=== PATIENT | female | born 1965 | race Caucasian/White ===

== ENCOUNTER 2016-08-26 14:48 | Observation (INO) | payer BC ==
[2016-08-26] MEDS ORDERED: Pneumococcal Polyvalent-23 Vaccine 0.5 ML SDV IM ONE (15:27)
[2016-08-26] MEDS ORDERED: Calcium Carbonate 500 MG Tab.Chew PO PRN (15:47)
[2016-08-26] MEDS ORDERED: 50% Dextrose in Water 50 ML Syringe IVPUSH PRN (15:48)
[2016-08-26] MEDS ORDERED: Polyethylene Glycol/Electrolytes 4,000 ML Bottle PO ONE ×2 (15:50→18:02)
[2016-08-26] MEDS ORDERED: Ondansetron 4 MG/2 ML SDV IVPUSH PRN (15:53)
--- NOTE | 2016-08-26 17:05 | PCM.CONSN ---
[id number] of HTN, DM and Fe deficiency anemia, presents after evaluation by her PCP, Dr Kwong. She has had PUD/gastritis in the past; the complaint after direct admission is dizziness. Denies LOC, has had jaw discomfort recently with exertion. ECG changes document nonspecific T wave abnormalities. The patient denies a change in BM, stool color or frequency. There has been no nausea or vomiting. A EGD as well as colonoscopy have been planned for 08/27/16, the patient is agreeable. In the meantime, 2 units of PRBCs will be transfused. Lasix will be given, as a scheduled dose after the first unit. Functional Status: Reports: tolerating diet, ambulating, urinating - Review of Systems General: Reports: Weakness Pulmonary: Reports: shortness of breath Cardiovascular: Reports: Other (jaw pain) Gastrointestinal: Reports: Abdominal pain (epigastric). Denies: No symptoms Genitourinary: Reports: no symptoms Musculoskeletal: Reports: no symptoms Skin: Reports: no symptoms Neurological: Reports: No Symptoms Psychiatric: Reports: no symptoms - Patient Data Vitals - most recent: Last Vital Signs Temp 36.6 C 08/26/16 15:18 Pulse 97 08/26/16 15:18 Resp 18 08/26/16 15:18 BP 129/80 08/26/16 15:18 Pulse Ox 96 08/26/16 15:18 Weight - most recent: 105.596 kg Med Orders - Current: Current Medications Calcium Carbonate/Glycine (Tums) 500 mg PO BEDTIME PRN PRN Reason: Heartburn Dextrose/Water (Dextrose 50% In Water) 50 ml IVPUSH ASDIRECTED PRN PRN Reason: Hypoglycemia Furosemide (Lasix) 20 mg IVPUSH DAILY [facility] Hydrochlorothiazide (Hydrochlorothiazide) 12.5 mg PO DAILY [facility] Insulin Aspart (Novolog) 0 unit SUBCUT QIDACANDBED [facility] PRN Reason: Protocol Losartan Potassium (Cozaar) 100 mg PO DAILY [facility] Metoprolol Tartrate (Lopressor) 25 mg PO BID [facility] Ondansetron HCl (Zofran) 4 mg IVPUSH Q8H PRN PRN Reason: Nausea/Vomiting Pantoprazole Sodium (Protonix Iv) 40 mg IVPUSH Q12H [facility] Polyethylene Glycol/Electrolytes (Golytely) 1,400 ml PO ONETIME ONE Stop: 08/27/16 04:01 Simvastatin (Zocor) 20 mg PO BEDTIME [facility] Temazepam (Restoril) 15 mg PO BEDTIME PRN PRN Reason: Insomnia Discontinued Medications Pneumococcal Polyvalent Vaccine (Pneumovax 23) 0.5 ml IM .ONCE ONE Stop: 08/26/16 15:28 Polyethylene Glycol/Electrolytes (Golytely) 2,600 ml PO ONETIME ONE Stop: 08/26/16 15:51 - Exam Quality Assessment: DVT prophylaxis General: alert, oriented, cooperative, no acute distress HEENT: Pupils equal, Pupils reactive, EOMI Neck: supple, trachea midline, no JVD Lungs: Clear to auscultation Cardiovascular: Regular Rate, Regular Rhythm Abdomen: bowel sounds present, soft, no tenderness, no distension (Female) Exam: Deferred Back Exam: normal inspection Extremities: normal pulses Skin: warm Neurological: no new focal deficit Psy/Mental Status: alert, normal affect, normal mood Consult PN Assessment/Plan POD#: 0 Procedures: Procedures AUTOMATED RETICULOCYTE COUNT (11/11/14) COMP SCREEN MAMMOGRAM ADD-ON (12/23/15) LACTATE (LD) (LDH) ENZYME (11/11/14) (1) Iron (Fe) deficiency anemia SNOMED Code(s): 93695652 Code(s): D50.9 - IRON DEFICIENCY ANEMIA, UNSPECIFIED Current Visit: Yes (2) Epigastric abdominal pain SNOMED Code(s): 31651623 Code(s): R10.13 - EPIGASTRIC PAIN Current Visit: Yes (3) Hypertension SNOMED Code(s): 76215945 Code(s): I10 - ESSENTIAL (PRIMARY) HYPERTENSION Current Visit: Yes (4) Diabetes SNOMED Code(s): 73776526 Code(s): E11.9 - TYPE 2 DIABETES MELLITUS WITHOUT COMPLICATIONS Current Visit: Yes (5) Hyperlipidemia LDL goal <130 SNOMED Code(s): 99559180 Code(s): E78.5 - HYPERLIPIDEMIA, UNSPECIFIED Current Visit: Yes (6) Anginal equivalent SNOMED Code(s): 254463815 Code(s): I20.8 - OTHER FORMS OF ANGINA PECTORIS Current Visit: Yes Problem List Initiated/Reviewed/Updated: Yes My Orders last 24 hours: My Active Orders 08/26/16 15:47 Calcium Carbonate [Tums] 500 mg PO BEDTIME PRN 08/26/16 15:48 Blood Glucose Check, Bedside [RC] QIDACANDBED Dextrose 50% in Water 50 ml IVPUSH ASDIRECTED PRN 08/26/16 15:53 Ondansetron [Zofran] 4 mg IVPUSH Q8H PRN 08/26/16 15:54 Notify Provider [RC] ASDIRECTED Transfuse PRBC [Transfuse Red Blood Cells] [COMM] Routine 08/26/16 16:28 RED BLOOD CELLS LP [BBK] Routine TYPE AND SCREEN [BBK] Routine TYPE AND SCREEN [BBK] Routine 08/26/16 17:00 Insulin Aspart [NovoLOG] See Protocol SUBCUT QIDACANDBED Pantoprazole [Protonix IV] 40 mg IVPUSH Q12H 08/26/16 19:00 Furosemide [Lasix] 20 mg IVPUSH DAILY 08/26/16 21:00 Metoprolol Tartrate [Lopressor] 25 mg PO BID Simvastatin [Zocor] 20 mg PO BEDTIME Temazepam [Restoril] 15 mg PO BEDTIME PRN 08/26/16 Dinner Clear Liquid Diet [DIET] 08/27/16 04:00 KCl/Na Sulf,Bicarb,Cl/PEG 3351 [GoLytely] 1,400 ml PO ONETIME ONE 08/27/16 09:00 Hydrochlorothiazide 12.5 mg PO DAILY Losartan [Cozaar] 100 mg PO DAILY Plan: Impression: Fe anemia History of PUD Anginal equivalent Chronic HTN DM Hyperlipidemia Plan: EGD/Colonsocopy per gen surg Golytely as directed, npo after 0600; clear liquids diet IVF PRBCs Stress test as an OP arranged by PCP, TBD DVT/GI prophylaxis
[2016-08-26] MEDS: Pantoprazole 40 MG Vial IVPUSH SCH (18:01)
[2016-08-26] MEDS: Insulin Aspart 100 Units/ML 3 ML Pen SUBCUT SCH ×2 (18:04→21:57)
--- NOTE | 2016-08-26 18:05 | PCM.PN ---
- General Info Date of Service: 08/26/16 - Patient Data Vitals - most recent: Last Vital Signs Temp 97.9 F 08/26/16 15:18 Pulse 97 08/26/16 15:18 Resp 18 08/26/16 15:18 BP 129/80 08/26/16 15:18 Pulse Ox 96 08/26/16 15:18 Weight - most recent: 105.596 kg Med Orders - Current: Current Medications Calcium Carbonate/Glycine (Tums) 500 mg PO BEDTIME PRN PRN Reason: Heartburn Dextrose/Water (Dextrose 50% In Water) 50 ml IVPUSH ASDIRECTED PRN PRN Reason: Hypoglycemia Furosemide (Lasix) 20 mg IVPUSH DAILY [facility] Hydrochlorothiazide (Hydrochlorothiazide) 12.5 mg PO DAILY [facility] Insulin Aspart (Novolog) 0 unit SUBCUT QIDACANDBED [facility] PRN Reason: Protocol Losartan Potassium (Cozaar) 100 mg PO DAILY [facility] Metoprolol Tartrate (Lopressor) 25 mg PO BID [facility] Ondansetron HCl (Zofran) 4 mg IVPUSH Q8H PRN PRN Reason: Nausea/Vomiting Pantoprazole Sodium (Protonix Iv) 40 mg IVPUSH Q12H [facility] Polyethylene Glycol/Electrolytes (Golytely) 1,400 ml PO ONETIME ONE Stop: 08/27/16 04:01 Simvastatin (Zocor) 20 mg PO BEDTIME [facility] Temazepam (Restoril) 15 mg PO BEDTIME PRN PRN Reason: Insomnia Discontinued Medications Pneumococcal Polyvalent Vaccine (Pneumovax 23) 0.5 ml IM .ONCE ONE Stop: 08/26/16 15:28 Polyethylene Glycol/Electrolytes (Golytely) 2,600 ml PO ONETIME ONE Stop: 08/26/16 15:51 Polyethylene Glycol/Electrolytes (Golytely) 4,000 ml PO ONETIME ONE Stop: 08/26/16 18:03 - Problem List Review Problem List Initiated/Reviewed/Updated: Yes - My Orders Last 24 Hours: My Active Orders 08/26/16 17:54 Resuscitation Status Routine 08/26/16 18:00 Verify Patient Consent Obtain [RC] ASDIRECTED 08/26/16 Breakfast Nothing per Oral After Midnight Diet [DIET] 08/27/16 01:00 Schedule Procedure [COMM] Routine - Assessment Assessment:: H&P dictated AAKASH
[2016-08-26] MEDS: Furosemide 20 MG/2 ML VIAL IVPUSH SCH (19:29)
[2016-08-26] MEDS ORDERED: Sodium Chloride 0.9% 250 ML ONE ×2 (20:36→23:03)
[2016-08-26] MEDS ORDERED: Simvastatin 20 MG Tab PO SCH (21:00)
[2016-08-26] MEDS ORDERED: Temazepam 15 MG Cap PO PRN (21:00)
[2016-08-26] MEDS: Metoprolol Tartrate 25 MG Tab PO SCH (21:57)
[2016-08-27] MEDS ORDERED: Polyethylene Glycol/Electrolytes 4,000 ML Bottle PO ONE (04:00)
[2016-08-27] MEDS: Pantoprazole 40 MG Vial IVPUSH SCH (05:19)
--- NOTE | 2016-08-27 07:00 | HP ---
DATE OF ADMISSION: 08/26/2016 HISTORY OF PRESENT ILLNESS: This is a 51-year-old female, who comes in with anemia of 7. The patient has had a history of GI bleed in the past and last year underwent upper GI endoscopy and colonoscopy and found to have peptic ulcer disease. She is placed on at that time Prilosec and her nonsteroidal was withdrawn which she was taking for back pain. The patient was placed on iron, improved, and in February had stopped her iron and inadvertently her Prilosec. In April, she began to have difficulties with shortness of breath and decreased exercise tolerance. She was seen by Dr. Varghese meehan who noted difficulties with her anemia. The patient was admitted to the hospital because of her symptoms for blood transfusions and later study with colonoscopy and upper GI endoscopy. PAST MEDICAL HISTORY: Diabetes, hypertension, hyperlipidemia. CURRENT MEDICATIONS: Per medication reconciliation form which has been reviewed. REVIEW OF SYSTEMS: Does have some chest pain. No cough, hoarseness, fainting, or weakness. Does have some weakness and does have some dizziness. No convulsions. Does have decreased exercise tolerance. No rectal bleeding or vomiting blood. No abdominal pain and no heavy use of nonsteroidals except every now and then she states she takes Anacin or Excedrin for her back. SOCIAL HISTORY: The patient has no smoking. ALLERGIES: No known allergies except for iodine and shellfish. HABITS: No drug use. FAMILY HISTORY: Noncontributory. PHYSICAL EXAMINATION: GENERAL: Reveals an alert, cooperative female. HEENT: Eyes; sclerae white, extraocular muscle motion normal. Oral cavity, healthy mucous membrane with mouth and tongue. NECK: Supple. No nodes. No thyromegaly. Trachea midline. LUNGS: Clear. No rales, rhonchi, fremitus, or dullness. HEART: Heart tones looks elevated heart rate of 97 to 100. No murmurs, S3, S4. ABDOMEN: Soft. No tenderness, guarding, or rebound. PSYCHIATRIC: Mental status is normal. SKIN: Warm. MUSCULOSKELETAL: Moves all 4 extremities. No angulation deformities. NEUROLOGIC: 3 through 12 cranial nerves intact. No sensorineural deficit. VITAL SIGNS: Show a blood pressure 129/80, pulse 97, respirations 18. ASSESSMENT: Anemia from blood loss, diabetes, hypertension, hyperlipidemia. PLAN: To proceed with colonoscopy and upper GI endoscopy. Discussed this with the patient risks, complications. She understands and consents. ELVIA /[id number]
[2016-08-27] MEDS: Insulin Aspart 100 Units/ML 3 ML Pen SUBCUT SCH ×2 (07:38→10:44)
[2016-08-27] MEDS: Metoprolol Tartrate 25 MG Tab PO SCH (08:18)
[2016-08-27] MEDS: Furosemide 20 MG/2 ML VIAL IVPUSH SCH (08:19)
[2016-08-27] MEDS ORDERED: Hydrochlorothiazide 12.5 MG Cap PO SCH (09:00)
[2016-08-27] MEDS ORDERED: Losartan 100 MG Tab PO SCH (09:00)
--- NOTE | 2016-08-27 10:43 | PCM.PREANE ---
Preanesthetic Assessment - Anesthesia/Transfusion/Family Hx Anesthesia History: Prior Anesthesia Without Reaction Family History of Anesthesia Reaction: No Transfusion History: No Prior Transfusion(s) - Review of Systems General: Fatigue Pulmonary: No Symptoms Cardiovascular: No Symptoms Gastrointestinal: No symptoms Neurological: No Symptoms Other: Reports: Easy Bruising, Diabetes (blood suger this am 130) - Physical Assessment NPO Status Date: 08/27/16 NPO Status Time: 06:00 Pulse: 68 O2 Sat by Pulse Oximetry: 97 Respiratory Rate: 16 Blood Pressure: 127/85 Temperature: 36.4 C Vital Signs: Last Vital Signs Temp 36.4 C 08/27/16 08:03 Pulse 68 08/27/16 08:18 Resp 16 08/27/16 08:03 BP 127/85 08/27/16 08:18 Pulse Ox 97 08/27/16 08:03 Height: 1.7 m Weight: 104.871 kg ASA Class: 2 Mental Status: Alert & Oriented x3 Dentition: Reports: Normal Dentition, Caries Thyro-Mental Finger Breadths: 3 Mouth Opening Finger Breadths: 3 ROM/Head Extension: Full Lungs: Clear to auscultation, Normal respiratory effort Cardiovascular: Regular Rate, Regular Rhythm - Lab Values: Laboratory Last Values WBC 5.47 K/mm3 (3.98-10.04) 08/27/16 05:22 RBC 4.75 M/mm3 (3.98-5.22) 08/27/16 05:22 Hgb 8.5 gm/L (11.2-15.7) L 08/27/16 05:22 Hct 28.8 % (34.1-44.9) L 08/27/16 05:22 MCV 60.6 fl (79.4-94.8) L 08/27/16 05:22 MCH 17.9 pg (25.6-32.2) L 08/27/16 05:22 MCHC 29.5 g/dl (32.2-35.5) L 08/27/16 05:22 RDW Std Deviation 56.0 fL (36.4-46.3) H 08/27/16 05:22 Plt Count 300 K/mm3 (182-369) 08/27/16 05:22 MPV 10.2 fl (9.4-12.3) 03/24/17 05:22 POC Glucose 130 mg/dL (70-105) H 08/27/16 06:53 Blood Type A POSITIVE 08/26/16 16:28 Gel Antibody Screen Negative 08/26/16 16:28 Crossmatch See Detail 08/26/16 16:28 - Allergies Allergies/Adverse Reactions: Allergies Allergy/AdvReac Type Severity Reaction Status Date / Time iodine Allergy Airway Verified 08/26/16 15:24 Tightness shellfish derived Allergy Airway Verified 08/26/16 15:24 Tightness - Blood Blood Available: Yes Product(s) Available: PRBC - Anesthesia Plan Pre-Op Medication Ordered: Beta Mireille Beta Mireille: Metoprolol Med Last Dose Date: 08/27/16 Med Last Dose Time: 08:00 - Acknowledgements Anesthesia Type Planned: MAC Pt an Appropriate Candidate for the Planned Anesthesia: Yes Alternatives and Risks of Anesthesia Discussed w Pt/Guardian: Yes Pt/Guardian Understands and Agrees with Anesthesia Plan: Yes PreAnesthesia Questionnaire HEENT History: Reports: Allergic rhinitis Cardiovascular History: Reports: Hypertension Musculoskeletal History: Reports: Back pain, chronic Endocrine/Metabolic History: Reports: Diabetes, type II - Infectious Disease History Infectious Disease History: Reports: Chicken pox - Past Surgical History HEENT Surgical History: Reports: Tonsillectomy, Other (see below) Other HEENT Surgeries/Procedures: jaw surgery Cardiovascular Surgical History: Reports: None Endocrine Surgical History: Reports: None Musculoskeletal Surgical History: Reports: None - SUBSTANCE USE Smoking Status *Q: Never Smoker Tobacco Use Within Last Twelve Months: No Second Hand Smoke Exposure: No Days Per Week of Alcohol Use: 0 Number of Drinks Per Day: 0 Total Drinks Per Week: 0 Recreational Drug Use History: No - HOME MEDS Home Medications: Home Meds Aspirin/Acetaminophen/Caffeine [Headache Relief Tablet] 2 tab PO Q4H PRN [History] Calcium Carbonate [Tums] 3 tab PO BEDTIME PRN 08/26/16 [History] Chlorpheniramine Maleate 4 mg PO Q2H PRN 08/26/16 [History] Metoprolol Tartrate 25 mg PO BID 08/26/16 [History] Olmesartan/Hydrochlorothiazide [Benicar HCT 40-12.5 MG] 1 tab PO DAILY 08/26/16 [History] Simvastatin [Zocor] 20 mg PO BEDTIME 08/26/16 [History] metFORMIN HCl [Metformin HCl] 500 mg PO BID 08/26/16 [History] - CURRENT (IN HOUSE) MEDS Current Meds: Current Medications Calcium Carbonate/Glycine (Tums) 500 mg PO BEDTIME PRN PRN Reason: Heartburn Dextrose/Water (Dextrose 50% In Water) 50 ml IVPUSH ASDIRECTED PRN PRN Reason: Hypoglycemia Furosemide (Lasix) 20 mg IVPUSH DAILY [facility] Last Admin: 08/27/16 08:19 Dose: Not Given Hydrochlorothiazide (Hydrochlorothiazide) 12.5 mg PO DAILY [facility] Last Admin: 08/27/16 08:18 Dose: Not Given Insulin Aspart (Novolog) 0 unit SUBCUT QIDACANDBED [facility] PRN Reason: Protocol Last Admin: 08/27/16 07:38 Dose: Not Given Losartan Potassium (Cozaar) 100 mg PO DAILY [facility] Last Admin: 08/27/16 08:18 Dose: Not Given Metoprolol Tartrate (Lopressor) 25 mg PO BID [facility] Last Admin: 08/27/16 08:18 Dose: 25 mg Ondansetron HCl (Zofran) 4 mg IVPUSH Q8H PRN PRN Reason: Nausea/Vomiting Pantoprazole Sodium (Protonix Iv) 40 mg IVPUSH Q12H [facility] Last Admin: 08/27/16 05:19 Dose: 40 mg Simvastatin (Zocor) 20 mg PO BEDTIME [facility] Last Admin: 08/26/16 21:57 Dose: 20 mg Temazepam (Restoril) 15 mg PO BEDTIME PRN PRN Reason: Insomnia Discontinued Medications Sodium Chloride (Normal Saline) Confirm Administered Dose 250 mls @ as directed .ROUTE .STK-MED ONE Stop: 08/26/16 20:37 Last Admin: 08/26/16 21:59 Dose: 100 ml Sodium Chloride (Normal Saline) Confirm Administered Dose 250 mls @ as directed .ROUTE .STK-MED ONE Stop: 08/26/16 23:04 Last Admin: 08/26/16 23:53 Dose: 150 ml Pneumococcal Polyvalent Vaccine (Pneumovax 23) 0.5 ml IM .ONCE ONE Stop: 08/26/16 15:28 Polyethylene Glycol/Electrolytes (Golytely) 2,600 ml PO ONETIME ONE Stop: 08/26/16 15:51 Last Admin: 08/26/16 18:01 Dose: 2,600 ml Polyethylene Glycol/Electrolytes (Golytely) 1,400 ml PO ONETIME ONE Stop: 08/27/16 04:01 Last Admin: 08/27/16 05:19 Dose: 1,400 ml Polyethylene Glycol/Electrolytes (Golytely) 4,000 ml PO ONETIME ONE Stop: 08/26/16 18:03 Last Admin: 08/26/16 18:58 Dose: Not Given Preanesthetic Assessment - PHYSICAL ASSESSMENT HR: 68 O2 Sat by Pulse Oximetry: 97 RR: 16 BP: 127/85 Temp: 36.4 C Vital Signs: Last Vital Signs Temp 36.4 C 08/27/16 08:03 Pulse 68 08/27/16 08:18 Resp 16 08/27/16 08:03 BP 127/85 08/27/16 08:18 Pulse Ox 97 08/27/16 08:03 Height: 1.7 m Weight: 104.871 kg - LAB Values: Laboratory Last Values WBC 5.47 K/mm3 (3.98-10.04) 08/27/16 05:22 RBC 4.75 M/mm3 (3.98-5.22) 08/27/16 05:22 Hgb 8.5 gm/L (11.2-15.7) L 08/27/16 05:22 Hct 28.8 % (34.1-44.9) L 08/27/16 05:22 MCV 60.6 fl (79.4-94.8) L 08/27/16 05:22 MCH 17.9 pg (25.6-32.2) L 08/27/16 05:22 MCHC 29.5 g/dl (32.2-35.5) L 08/27/16 05:22 RDW Std Deviation 56.0 fL (36.4-46.3) H 08/27/16 05:22 Plt Count 300 K/mm3 (182-369) 08/27/16 05:22 MPV 10.2 fl (9.4-12.3) 08/27/16 05:22 POC Glucose 130 mg/dL (70-105) H 08/27/16 06:53 Blood Type A POSITIVE 08/26/16 16:28 Gel Antibody Screen Negative 08/26/16 16:28 Crossmatch See Detail 08/26/16 16:28 - ALLERGIES Allergies/Adverse Reactions: Allergies Allergy/AdvReac Type Severity Reaction Status Date / Time iodine Allergy Airway Verified 08/26/16 15:24 Tightness shellfish derived Allergy Airway Verified 08/26/16 15:24 Tightness
[2016-08-27] MEDS ORDERED: Propofol 200 MG/20 ML SDV ONE ×4 (12:57→13:22)
[2016-08-27] MEDS ORDERED: Midazolam 1 MG/ML 2 ML SDV ONE (12:57)
[2016-08-27] MEDS ORDERED: Lidocaine 1% 4 ML ONE (13:01)
[2016-08-27] MEDS ORDERED: fentaNYL 100 MCG/2 ML SDV ONE (13:20)
--- NOTE | 2016-08-27 13:34 | PCM.OPNOTE ---
- General Post-Op/Procedure Note Date of Surgery/Procedure: 08/27/16 Operative Procedure(s): egd with bx/colonoscopy Pre Op Diagnosis: anemia due to GI bleed Post-Op Diagnosis: Same Anesthesia Technique: MAC Primary Surgeon: Jose Alfredo Pearce EBL in mLs: 0 Complications: None Condition: Good Free Text/Narrative:: Intake & Output 08/26/16 08/27/16 08/27/16 23:59 07:59 15:59 Intake Total 544 2127 Output Total 200 Balance 544 1923
--- NOTE | 2016-08-27 13:37 | PCM.SN ---
- Free Text/Narrative Note: 1230 EKG Sinus rhythm probable left atrial enlargement borderline repolarization abnormality per Dr Kwong
[2016-08-27 13:46] VITALS: BP 97/82
--- NOTE | 2016-08-27 14:12 | PCM.PN ---
- General Info Date of Service: 08/27/16 - Patient Data Vitals - most recent: Last Vital Signs Temp 97.7 F 08/27/16 13:35 Pulse 69 08/27/16 13:35 Resp 19 08/27/16 13:35 BP 97/82 08/27/16 13:35 Pulse Ox 98 08/27/16 13:35 Weight - most recent: 105.596 kg I&O - last 24 hours: Intake & Output 08/26/16 08/27/16 08/27/16 23:59 07:59 15:59 Intake Total 544 2128 Output Total 200 Balance 544 1928 Lab Results last 24 hrs: Laboratory Results - last 24 hr 08/26/16 08/26/16 08/26/16 Range/Units 16:28 18:04 20:55 WBC (3.98-10.04) K/mm3 RBC (3.98-5.22) M/mm3 Hgb (11.2-15.7) gm/L Hct (34.1-44.9) % MCV (79.4-94.8) fl MCH (25.6-32.2) pg MCHC (32.2-35.5) g/dl RDW Std Deviation (36.4-46.3) fL Plt Count (182-369) K/mm3 MPV (9.4-12.3) fl POC Glucose 146 H 155 H (70-105) mg/dL Blood Type A POSITIVE Gel Antibody Screen Negative Crossmatch See Detail 08/27/16 08/27/16 08/27/16 Range/Units 05:22 06:53 10:42 WBC 5.47 (3.98-10.04) K/mm3 RBC 4.75 (3.98-5.22) M/mm3 Hgb 8.5 L (11.2-15.7) gm/L Hct 28.8 L (34.1-44.9) % MCV 60.6 L (79.4-94.8) fl MCH 17.9 L (25.6-32.2) pg MCHC 29.5 L (32.2-35.5) g/dl RDW Std Deviation 56.0 H (36.4-46.3) fL Plt Count 300 (182-369) K/mm3 MPV 10.2 (9.4-12.3) fl POC Glucose 130 H 141 H (70-105) mg/dL Blood Type Gel Antibody Screen Crossmatch Med Orders - Current: Current Medications Calcium Carbonate/Glycine (Tums) 500 mg PO BEDTIME PRN PRN Reason: Heartburn Dextrose/Water (Dextrose 50% In Water) 50 ml IVPUSH ASDIRECTED PRN PRN Reason: Hypoglycemia Furosemide (Lasix) 20 mg IVPUSH DAILY [facility] Last Admin: 08/27/16 08:19 Dose: Not Given Hydrochlorothiazide (Hydrochlorothiazide) 12.5 mg PO DAILY [facility] Last Admin: 08/27/16 08:18 Dose: Not Given Insulin Aspart (Novolog) 0 unit SUBCUT QIDACANDBED [facility] PRN Reason: Protocol Last Admin: 08/27/16 10:44 Dose: Not Given Losartan Potassium (Cozaar) 100 mg PO DAILY [facility] Last Admin: 08/27/16 08:18 Dose: Not Given Metoprolol Tartrate (Lopressor) 25 mg PO BID [facility] Last Admin: 08/27/16 08:18 Dose: 25 mg Ondansetron HCl (Zofran) 4 mg IVPUSH Q8H PRN PRN Reason: Nausea/Vomiting Pantoprazole Sodium (Protonix Iv) 40 mg IVPUSH Q12H [facility] Last Admin: 08/27/16 05:19 Dose: 40 mg Simvastatin (Zocor) 20 mg PO BEDTIME [facility] Last Admin: 08/26/16 21:57 Dose: 20 mg Temazepam (Restoril) 15 mg PO BEDTIME PRN PRN Reason: Insomnia Discontinued Medications Fentanyl (Sublimaze) Confirm Administered Dose 100 mcg .ROUTE .STK-MED ONE Stop: 08/27/16 13:21 Sodium Chloride (Normal Saline) Confirm Administered Dose 250 mls @ as directed .ROUTE .STK-MED ONE Stop: 08/26/16 20:37 Last Admin: 08/26/16 21:59 Dose: 100 ml Sodium Chloride (Normal Saline) Confirm Administered Dose 250 mls @ as directed .ROUTE .STK-MED ONE Stop: 08/26/16 23:04 Last Admin: 08/26/16 23:53 Dose: 150 ml Lidocaine HCl (Xylocaine-Mpf 1%) Confirm Administered Dose 4 mls @ as directed .ROUTE .STK-MED ONE Stop: 08/27/16 13:02 Midazolam HCl (Versed 1 Mg/Ml) Confirm Administered Dose 2 mg .ROUTE .STK-MED ONE Stop: 08/27/16 12:58 Pneumococcal Polyvalent Vaccine (Pneumovax 23) 0.5 ml IM .ONCE ONE Stop: 08/26/16 15:28 Polyethylene Glycol/Electrolytes (Golytely) 2,600 ml PO ONETIME ONE Stop: 08/26/16 15:51 Last Admin: 08/26/16 18:01 Dose: 2,600 ml Polyethylene Glycol/Electrolytes (Golytely) 1,400 ml PO ONETIME ONE Stop: 08/27/16 04:01 Last Admin: 08/27/16 05:19 Dose: 1,400 ml Polyethylene Glycol/Electrolytes (Golytely) 4,000 ml PO ONETIME ONE Stop: 08/26/16 18:03 Last Admin: 08/26/16 18:58 Dose: Not Given Propofol (Diprivan 20 Ml) Confirm Administered Dose 200 mg .ROUTE .STK-MED ONE Stop: 08/27/16 12:58 Propofol (Diprivan 20 Ml) Confirm Administered Dose 200 mg .ROUTE .STK-MED ONE Stop: 08/27/16 13:09 Propofol (Diprivan 20 Ml) Confirm Administered Dose 200 mg .ROUTE .STK-MED ONE Stop: 08/27/16 13:16 Propofol (Diprivan 20 Ml) Confirm Administered Dose 200 mg .ROUTE .STK-MED ONE Stop: 08/27/16 13:23 - Problem List Review Problem List Initiated/Reviewed/Updated: Yes - My Orders Last 24 Hours: My Active Orders 08/26/16 17:54 Resuscitation Status Routine 08/26/16 18:00 Verify Patient Consent Obtain [RC] ASDIRECTED 08/27/16 01:00 Schedule Procedure [COMM] Routine 08/27/16 01:39 Up ad Aisha [RC] ASDIRECTED 08/27/16 09:49 Antiembolic Devices [RC] PER UNIT ROUTINE SCD [Sequential Compression Device] [OM.PC] Routine 08/27/16 14:05 Ready for Discharge [RC] PER UNIT ROUTINE 08/27/16 Dinner [employer] Diet [DIET] - Assessment Assessment:: H&P dictated AAKASH - Plan Plan:: discharge dictated AAKASH
--- NOTE | 2016-08-27 14:43 | PCM.CONSN ---
- General Info Date of Service: 08/27/16 Functional Status: Reports: pain controlled, tolerating diet, ambulating, urinating - Review of Systems General: Reports: No Symptoms HEENT: Reports: no symptoms Pulmonary: Reports: no symptoms Cardiovascular: Reports: No Symptoms Gastrointestinal: Reports: No symptoms Genitourinary: Reports: no symptoms Musculoskeletal: Reports: no symptoms Neurological: Reports: No Symptoms Psychiatric: Reports: no symptoms - Patient Data Vitals - most recent: Last Vital Signs Temp 36.5 C 08/27/16 13:35 Pulse 69 08/27/16 13:35 Resp 19 08/27/16 13:35 BP 97/82 08/27/16 13:35 Pulse Ox 98 08/27/16 13:35 Weight - most recent: 105.596 kg I&O - last 24 hours: Intake & Output 08/26/16 08/27/16 08/27/16 22:59 06:59 14:59 Intake Total 240 2432 Output Total 200 Balance 240 2232 Lab Results last 24 hrs: Laboratory Results - last 24 hr 08/26/16 08/26/16 08/26/16 Range/Units 16:28 18:04 20:55 WBC (3.98-10.04) K/mm3 RBC (3.98-5.22) M/mm3 Hgb (11.2-15.7) gm/L Hct (34.1-44.9) % MCV (79.4-94.8) fl MCH (25.6-32.2) pg MCHC (32.2-35.5) g/dl RDW Std Deviation (36.4-46.3) fL Plt Count (182-369) K/mm3 MPV (9.4-12.3) fl POC Glucose 146 H 155 H (70-105) mg/dL Blood Type A POSITIVE Gel Antibody Screen Negative Crossmatch See Detail 08/27/16 08/27/16 08/27/16 Range/Units 05:22 06:53 10:42 WBC 5.47 (3.98-10.04) K/mm3 RBC 4.75 (3.98-5.22) M/mm3 Hgb 8.5 L (11.2-15.7) gm/L Hct 28.8 L (34.1-44.9) % MCV 60.6 L (79.4-94.8) fl MCH 17.9 L (25.6-32.2) pg MCHC 29.5 L (32.2-35.5) g/dl RDW Std Deviation 56.0 H (36.4-46.3) fL Plt Count 300 (182-369) K/mm3 MPV 10.2 (9.4-12.3) fl POC Glucose 130 H 141 H (70-105) mg/dL Blood Type Gel Antibody Screen Crossmatch Med Orders - Current: Current Medications Calcium Carbonate/Glycine (Tums) 500 mg PO BEDTIME PRN PRN Reason: Heartburn Dextrose/Water (Dextrose 50% In Water) 50 ml IVPUSH ASDIRECTED PRN PRN Reason: Hypoglycemia Furosemide (Lasix) 20 mg IVPUSH DAILY [facility] Last Admin: 08/27/16 08:19 Dose: Not Given Hydrochlorothiazide (Hydrochlorothiazide) 12.5 mg PO DAILY [facility] Last Admin: 08/27/16 08:18 Dose: Not Given Insulin Aspart (Novolog) 0 unit SUBCUT QIDACANDBED [facility] PRN Reason: Protocol Last Admin: 08/27/16 10:44 Dose: Not Given Losartan Potassium (Cozaar) 100 mg PO DAILY [facility] Last Admin: 08/27/16 08:18 Dose: Not Given Metoprolol Tartrate (Lopressor) 25 mg PO BID [facility] Last Admin: 08/27/16 08:18 Dose: 25 mg Ondansetron HCl (Zofran) 4 mg IVPUSH Q8H PRN PRN Reason: Nausea/Vomiting Pantoprazole Sodium (Protonix Iv) 40 mg IVPUSH Q12H [facility] Last Admin: 08/27/16 05:19 Dose: 40 mg Simvastatin (Zocor) 20 mg PO BEDTIME [facility] Last Admin: 08/26/16 21:57 Dose: 20 mg Temazepam (Restoril) 15 mg PO BEDTIME PRN PRN Reason: Insomnia Discontinued Medications Fentanyl (Sublimaze) Confirm Administered Dose 100 mcg .ROUTE .STK-MED ONE Stop: 08/27/16 13:21 Sodium Chloride (Normal Saline) Confirm Administered Dose 250 mls @ as directed .ROUTE .STK-MED ONE Stop: 08/26/16 20:37 Last Admin: 08/26/16 21:59 Dose: 100 ml Sodium Chloride (Normal Saline) Confirm Administered Dose 250 mls @ as directed .ROUTE .STK-MED ONE Stop: 08/26/16 23:04 Last Admin: 08/26/16 23:53 Dose: 150 ml Lidocaine HCl (Xylocaine-Mpf 1%) Confirm Administered Dose 4 mls @ as directed .ROUTE .STK-MED ONE Stop: 08/27/16 13:02 Midazolam HCl (Versed 1 Mg/Ml) Confirm Administered Dose 2 mg .ROUTE .STK-MED ONE Stop: 08/27/16 12:58 Pneumococcal Polyvalent Vaccine (Pneumovax 23) 0.5 ml IM .ONCE ONE Stop: 08/26/16 15:28 Polyethylene Glycol/Electrolytes (Golytely) 2,600 ml PO ONETIME ONE Stop: 08/26/16 15:51 Last Admin: 08/26/16 18:01 Dose: 2,600 ml Polyethylene Glycol/Electrolytes (Golytely) 1,400 ml PO ONETIME ONE Stop: 08/27/16 04:01 Last Admin: 08/27/16 05:19 Dose: 1,400 ml Polyethylene Glycol/Electrolytes (Golytely) 4,000 ml PO ONETIME ONE Stop: 08/26/16 18:03 Last Admin: 08/26/16 18:58 Dose: Not Given Propofol (Diprivan 20 Ml) Confirm Administered Dose 200 mg .ROUTE .STK-MED ONE Stop: 08/27/16 12:58 Propofol (Diprivan 20 Ml) Confirm Administered Dose 200 mg .ROUTE .STK-MED ONE Stop: 08/27/16 13:09 Propofol (Diprivan 20 Ml) Confirm Administered Dose 200 mg .ROUTE .STK-MED ONE Stop: 08/27/16 13:16 Propofol (Diprivan 20 Ml) Confirm Administered Dose 200 mg .ROUTE .STK-MED ONE Stop: 08/27/16 13:23 - Exam Quality Assessment: DVT prophylaxis General: alert, oriented, cooperative, no acute distress HEENT: Pupils equal, Pupils reactive Neck: supple, trachea midline Lungs: Normal respiratory effort Cardiovascular: Regular Rate, Regular Rhythm Abdomen: bowel sounds present, soft, no tenderness, no distension (Female) Exam: Deferred Back Exam: normal inspection Extremities: normal pulses Skin: warm Neurological: no new focal deficit, normal gait, normal speech Psy/Mental Status: alert, normal affect, normal mood Consult PN Assessment/Plan POD#: 0 Procedures: Procedures AUTOMATED RETICULOCYTE COUNT (11/11/14) COMP SCREEN MAMMOGRAM ADD-ON (12/23/15) LACTATE (LD) (LDH) ENZYME (11/11/14) (1) Iron (Fe) deficiency anemia SNOMED Code(s): 08009536 Code(s): D50.9 - IRON DEFICIENCY ANEMIA, UNSPECIFIED Current Visit: Yes (2) Epigastric abdominal pain SNOMED Code(s): 83765706 Code(s): R10.13 - EPIGASTRIC PAIN Current Visit: Yes (3) Hypertension SNOMED Code(s): 77027153 Code(s): I10 - ESSENTIAL (PRIMARY) HYPERTENSION Current Visit: Yes (4) Diabetes SNOMED Code(s): 96030662 Code(s): E11.9 - TYPE 2 DIABETES MELLITUS WITHOUT COMPLICATIONS Current Visit: Yes (5) Hyperlipidemia LDL goal <130 SNOMED Code(s): 46528072 Code(s): E78.5 - HYPERLIPIDEMIA, UNSPECIFIED Current Visit: Yes (6) Anginal equivalent SNOMED Code(s): 226977442 Code(s): I20.8 - OTHER FORMS OF ANGINA PECTORIS Current Visit: Yes Problem List Initiated/Reviewed/Updated: Yes My Orders last 24 hours: My Active Orders 08/26/16 15:47 Calcium Carbonate [Tums] 500 mg PO BEDTIME PRN 08/26/16 15:48 Blood Glucose Check, Bedside [RC] QIDACANDBED Dextrose 50% in Water 50 ml IVPUSH ASDIRECTED PRN 08/26/16 15:53 Ondansetron [Zofran] 4 mg IVPUSH Q8H PRN 08/26/16 15:54 Notify Provider [RC] ASDIRECTED Transfuse PRBC [Transfuse Red Blood Cells] [COMM] Routine 08/26/16 17:00 Insulin Aspart [NovoLOG] See Protocol SUBCUT QIDACANDBED Pantoprazole [Protonix IV] 40 mg IVPUSH Q12H 08/26/16 18:30 Patient Status [ADT] Routine 08/26/16 19:00 Furosemide [Lasix] 20 mg IVPUSH DAILY 08/26/16 21:00 Metoprolol Tartrate [Lopressor] 25 mg PO BID Simvastatin [Zocor] 20 mg PO BEDTIME Temazepam [Restoril] 15 mg PO BEDTIME PRN 08/26/16 Dinner Clear Liquid Diet [DIET] 08/27/16 09:00 Hydrochlorothiazide 12.5 mg PO DAILY Losartan [Cozaar] 100 mg PO DAILY Plan: Impression/Plan: S/P 2 units PRBCs S/P EGD/ colonoscopy Pre-pyloric ulcer noted, treatment per Dr Pearce. Will be DCd today with follow up as arranged by General Surgery and PCP.
--- NOTE | 2016-08-27 15:04 | OR ---
DATE OF OPERATION: 08/27/2016 SURGEON: Jose Alfredo Pearce MD PREOPERATIVE DIAGNOSIS: Anemia due to gastrointestinal bleed. POSTOPERATIVE DIAGNOSIS: Anemia due to gastrointestinal bleed. OPERATION PERFORMED: Colonoscopy to cecum. FINDINGS: Normal study. ANESTHESIA: Procedure done under IV sedation. DESCRIPTION OF PROCEDURE: The patient having been taken to the endoscopy room and having been connected to monitoring equipment, given IV sedation for upper GI endoscopy. The IV sedation was continued for colonoscopy and placed in left lateral position. The perianal area was inspected, it was normal. Rectal exam showed good sphincter tone. A video Olympus colonoscope was then introduced into the rectum and threaded up without problem to the cecum, where the ileocecal valve and appendicular orifice were noted. Prep was excellent throughout the colon. [place] Cleansing Score grade A, and the scope was slowly withdrawn showing the cecum, ascending colon, transverse colon, descending colon, sigmoid colon, and rectum. Retroflexed view was done. The patient tolerated the procedure, sent to recovery room in a stable condition. She will be followed up as needed in the clinic. ESTIMATED BLOOD LOSS: 0 mLs. MMODAL /[id number]
--- NOTE | 2016-08-27 15:09 | OR ---
DATE OF OPERATION: 08/27/2016 SURGEON: Jose Alfredo Pearce MD PREOPERATIVE DIAGNOSIS: Anemia. POSTOPERATIVE DIAGNOSIS: Anemia. OPERATION PERFORMED: Esophagogastroduodenoscopy with biopsy done under IV sedation. FINDINGS: A pre-pyloric ulcer with measuring approximately half a cm across with a lara base and no active bleeding or visible vessel. The antrum appeared to be in chronic gastritis. Hiatal hernia was noted, affixed with the GE junction located at 35 cm with a linear gastric erosion in one area. Second portion of the duodenum, duodenal bulb, and the balance of the esophagus did not show any active disease. Fundus and body and cardia of the stomach and hiatal hernia pouch did not show any active disease or acute disease. biopsy done under IV sedation. DESCRIPTION OF PROCEDURE: The patient was taken to the operating room, placed in a supine position, connected to monitoring equipment, given IV sedation, placed in the left lateral position. Bite block was inserted and video Olympus gastroscope was placed in a posterior oropharynx under direct vision, threaded past the cricopharyngeus, down the esophagus, and into the stomach. The stomach was insufflated and the scope passed through the pylorus to the second portion of duodenum and then slowly withdrawn showing the normal second portion of the duodenum, duodenal bulb, and pyloric channel; although the pyloric channel was deformed. Just in the pre-pyloric area and the greater curvature, there was ulcer measuring about a cm across lara base. No visible vessel. No active bleeding. It is likely the source of her anemia. The biopsy of the antrum was then performed. Body and cardia of the stomach and fundus were viewed with J-maneuver showing a large hiatal hernia which was fixed. The scope was withdrawn the hiatal hernia pouch and this was normal and at the GE junction was located at 35 cm where there was a linear erosion and this was biopsied. The rest of the esophagus was viewed and was unremarkable. The patient tolerated the procedure well and was sent to the recovery room in a stable condition. Specimen sent to Pathology in a labeled container and patient's IV sedation will be continued for colonoscopy. ANESTHESIA: IV sedation. ESTIMATED BLOOD LOSS: 0 mLs. MMODAL /[id number]
--- NOTE | 2016-08-27 15:14 | DISCH ---
ADMISSION DATE: 08/26/2016 DISCHARGE DATE: 08/27/2016 HISTORY: The patient is a 51-year-old who had iron deficiency anemia and an ulcer sometime ago and was treated with Prilosec for a known peptic ulcer disease. The patient's hemoglobin improved, and she was taken off the iron back in April or May, and unbeknownst to her physician, she voluntarily stopped her Prilosec. The patient began to have dizziness and feeling of faintness, and came in and saw Dr. Kwong, who noted hemoglobin of 7 and asked to admit the patient for further care and under observational status. HOSPITAL COURSE: The patient was placed in the hospital under Dr. Pearce's service with consultation with hospitalist. She was transfused 2 units of blood and hemoglobin came up to 8.5. Colonoscopy was done, which was negative, but the upper GI endoscopy showed a pre-pyloric ulcer with clean base. No active bleeding and no visible vessel. The patient also had a large fixed hiatal hernia and esophageal erosion at the GE junction. The patient was felt to have reached maximum hospital benefit and remained stable throughout. She was elected to be discharged with followup in a week with Dr. Kwong. DISCHARGE DIAGNOSES: 1. Anemia secondary to gastrointestinal bleed. 2. Pre-pyloric ulcer, stable. 3. Hiatal hernia and esophageal erosion. CONDITION ON DISCHARGE: Improved. DIET: She will be discharged on a surgical soft diet. DISCHARGE MEDICATIONS: She will resume her previous medications that she has had in the past consisting of her metformin, Zocor, Benicar, hydrochlorothiazide, and metoprolol. I would ask her to stop her aspirin and caffeine for headaches. ACTIVITY: No work. FOLLOW-UP: Followup with Dr. Kwong in a week. ODAL /[id number]
== END 2016-08-27 14:55 | disposition home or self-care (01) ==
LOC: JD.MS 14:48
PROVIDERS: ADMIT Surgery; ATTEND Surgery
PROC: 0DJD8ZZ Inspection of Lower Intestinal Tract, Via Natural or Artificial Opening Endoscopic (ICD-10-PCS; principal; 2016-08-27)
PROC: 0DB68ZX Excision of Stomach, Via Natural or Artificial Opening Endoscopic, Diagnostic (ICD-10-PCS; 2016-08-27)
DX: K29.70 Gastritis, unspecified, without bleeding (principal); K22.10 Ulcer of esophagus without bleeding; K44.9 Diaphragmatic hernia without obstruction or gangrene; D50.0 Iron deficiency anemia secondary to blood loss (chronic); I10 Essential (primary) hypertension; E11.9 Type 2 diabetes mellitus without complications; E78.2 Mixed hyperlipidemia; Z87.11 Personal history of peptic ulcer disease; Z79.82 Long term (current) use of aspirin; Z79.84 Long term (current) use of oral hypoglycemic drugs; Z79.899 Other long term (current) drug therapy; Z91.048 Other nonmedicinal substance allergy status; Z91.013 Allergy to seafood; Z90.89 Acquired absence of other organs; Z98.890 Other specified postprocedural states
CPT/HCPCS: 36415; 36430; 43239; 45378; 82962; 85027; 86850; 86900; 86901; 86922; 96374; 96376; A9270; C9113; G0009; G0378; J1815; J2250; J3010; J7050; P9016; 90732; J2704

== ENCOUNTER 2022-03-08 17:07 | Emergency (ER) | payer BC ==
[2022-03-31 13:35] VITALS: BP 121/75; PULSE 72
== END 2022-03-08 19:00 | disposition left against medical advice (07) ==
LOC: JD.ED 17:07
DX: Z53.21 Procedure and treatment not carried out due to patient leaving prior to being seen by health care provider (principal)